=== PATIENT | female | born 1980 | race Caucasian/White ===

== ENCOUNTER 2017-06-01 07:54 | Emergency (ER) | payer SELFPAY ==
[~2017-06-01] VITALS: Ht 170.2 cm; Wt 55.8 kg
[2017-06-01 08:02] VITALS: BP 107/69
[2017-06-01] MEDS ORDERED: IBUP600T16 PO (08:22)
[2017-06-01] MEDS ORDERED: AMOX500C PO (08:22)
--- NOTE | 2017-06-01 08:22 | PHYS DOC ---
Past History Past Medical History: No Pertinent History Past Surgical History: Tubal ligation Alcohol Use: None Drug Use: None Adult General Chief Complaint Chief Complaint: SORE THROAT HPI HPI Patient is a 37-year-old female with a history significant for strep throat in the past presents to the ER today secondary to cough congestion sore throat. Patient reports low-grade fevers. Patient reports some nausea but no vomiting or diarrhea. Patient reports she is able tolerate by mouth solids and liquids well. Review of systems: Constitutional: Denies fever or chills Eyes: Denies change in visual acuity, redness, or eye pain HENT: Denies nasal congestion or sore throat Respiratory: Denies cough or shortness of breath All other systems were reviewed and found to be within normal limits, except as documented in this note. Physical exam: Constitutional: Well developed, well nourished, no acute distress, non-toxic appearance. HENT: Normocephalic, atraumatic, bilateral external ears normal, nose normal. Eyes: PERRLA, EOMI, conjunctiva normal, no discharge. Neck: Normal range of motion, no tenderness, supple, no stridor. Cardiovascular: Heart rate regular rhythm, Lungs & Thorax: Bilateral breath sounds clear to auscultation Abdomen: No abdominal distention. Skin: Warm, dry, no erythema, no rash. Back: Normal spinal curvature Extremities: No tenderness, no cyanosis, no clubbing, ROM intact, no edema. Neurologic: Alert and oriented X 3, normal motor function, normal sensory function, no focal deficits noted. Psychologic: Affect normal, judgement normal, mood normal. Patient's ER physical exam was most remarkable: Oropharynx is clear with no exudates. Mild bilateral erythema. No edema. Patient has no trismus. Patient has some mild submandibular lymphadenopathy. Patient's lungs were clear without any wheezing rales or rhonchi. Patient is nontoxic appearing. Assessment and plan: 1. 29-year-old female who presents here today secondary to sore throat cough congestion. Patient's symptoms are consistent with bronchitis. Patient is a smoker. Patient be discharged home on Zithromax and Motrin as needed. Allergies Allergies Allergies Coded Allergies Type Severity Reaction Last Updated Verified sulfamethoxazole Allergy Unknown 06/01/17 Yes trimethoprim Allergy Unknown 06/01/17 Yes Current Patient Data Vital Signs Vital Signs Date Time Temp Pulse Resp B/P (MAP) Pulse Ox O2 Delivery O2 Flow Rate FiO2 06/01/17 08:02 99.3 95 16 100 Room Air EKG EKG [] Radiology/Procedures Radiology/Procedures [] Course & Med Decision Making Course & Med Decision Making Pertinent Labs and Imaging studies reviewed. (See chart for details) [] Dragon Disclaimer Dragon Disclaimer This electronic medical record was generated, in whole or in part, using a voice recognition dictation system. Departure Departure: Impression: Primary Impression: Bronchitis Additional Impressions: Sore throat Sinusitis Disposition: HOME, SELF-CARE Condition: IMPROVED Patient Instructions: Acute Bronchitis, Sore Throat Scripts Ibuprofen (IBUPROFEN) 600 Mg Tablet 600 MG PO QID Y for PAIN, #20 Prov: KARLA LOPEZ MD 06/01/17 Amoxicillin (AMOXICILLIN) 500 Mg Capsule 1 CAP PO TID, #30 CAP Prov: KARLA LOPEZ MD 06/01/17 Problem Qualifiers KARLA LOPEZ MD Jun 01, 2017 08:22
[2017-06-01] MEDS ORDERED: IBUPROFEN 600 MG TABLET. PO ONE (08:45)
[2017-06-01] MEDS ORDERED: AMOXICILLIN 250 MG CAPSULE PO ONE (08:45)
== END 2017-06-01 08:35 | disposition home or self-care (01) ==
LOC: ER 07:54
DX: J40 Bronchitis, not specified as acute or chronic (principal); J32.9 Chronic sinusitis, unspecified; J02.9 Acute pharyngitis, unspecified; Z88.1 Allergy status to other antibiotic agents
CPT/HCPCS: 99283

== ENCOUNTER 2017-09-05 06:41 | Emergency (ER) | payer MEDICAID ==
[~2017-09-05] VITALS: Ht 157.5 cm; Wt 56.7 kg
[~2017-09-05 06:41] MED LIST: AMOX500C PO; IBUP600T16 PO
[2017-09-05 07:02] VITALS: BP 96/73
--- NOTE | 2017-09-05 07:26 | PHYS DOC ---
Past History Past Medical History: No Pertinent History Past Surgical History: Tubal ligation Alcohol Use: None Drug Use: None Adult General Chief Complaint Chief Complaint: SORE THROAT HPI HPI Patient is a 37-year-old female presenting to the emergency department for evaluation of a sore throat that has been going on for 4 days. She feels that it is scratchy and that sometimes her throat is more swollen. She has had cough and congestion but no fevers chills nausea vomiting or other systemic symptoms. She says that she has had strep throat for times this year and is concerned that she may have it again. She is able to eat and drink with no difficulty with says it hurts to swallow. She is in no obvious distress with normal vital signs. Review of Systems Review of Systems Constitutional: Denies fever or chills [] HENT: + nasal congestion, sore throat [] Allergies Allergies Allergies Coded Allergies Type Severity Reaction Last Updated Verified sulfamethoxazole Allergy Unknown 09/05/17 Yes trimethoprim Allergy Unknown 09/05/17 Yes Physical Exam Physical Exam Constitutional: Well developed, well nourished, no acute distress, non-toxic appearance. [] HENT: Normocephalic, atraumatic, bilateral external ears normal, oropharynx erythematous with no swelling, patent airway, no oral exudates, nose congested. Neck: Normal range of motion, no tenderness, supple, no stridor. [] Current Patient Data Vital Signs Vital Signs Date Time Temp Pulse Resp B/P (MAP) Pulse Ox O2 Delivery O2 Flow Rate FiO2 09/05/17 07:02 98.9 76 16 100 Room Air EKG EKG [] Radiology/Procedures Radiology/Procedures [] Course & Med Decision Making Course & Med Decision Making Patient with Cipro symptoms as a likely viral pharyngitis possibly with some allergic symptoms to it as well. She looks well with normal vital signs and patent airway. Patient is inquiring about getting a dose of steroids she read that that may help. I told her if it is allergic symptoms he could help some I will give her a dose of Decadron here and recommend [id number] ibuprofen and Nasonex Benadryl and will prescribe her viscous lidocaine. Patient told to follow primary care provider within 1 week to ensure improvement and come back to the ED sooner with worsening pain shortness of breath difficulty breathing or other general concerns. Patient aware and agreeable with plan and verbalized understanding of the above instructions. Dragon Disclaimer Dragon Disclaimer This electronic medical record was generated, in whole or in part, using a voice recognition dictation system. Departure Departure: Impression: Primary Impression: Pharyngitis Disposition: HOME, SELF-CARE Condition: STABLE Referrals: PCP,NO (PCP) Patient Instructions: Viral Pharyngitis Additional Instructions: TAKE 400MG OF IBUPROFEN EVERY 6 HOURS. YOU CAN ALSO TAKE TYLENOL FOR PAIN. TAKE 25MG OF BENADRYL FOR SCRATCHING FEELING. YOU CAN ALSO USE OTC NASONEX THIS WILL HELP DECREASE YOUR POST NASAL DRIP. USE OTC CEPACOL FOR PAIN WELL. DRINK PLENTY OF FLUIDS AND EAT A GOOD DIET. Problem Qualifiers Primary Impression: Pharyngitis Pharyngitis/tonsillitis etiology: unspecified etiology Qualified Codes: J02.9 - Acute pharyngitis, unspecified RICHARD VEGAS DO Sep 05, 2017 07:26
[2017-09-05] MEDS ORDERED: DEXAMETHASONE 4 MG TABLET PO ONE (07:30)
== END 2017-09-05 07:32 | disposition home or self-care (01) ==
LOC: ER 06:41
DX: J02.9 Acute pharyngitis, unspecified (principal); Z88.1 Allergy status to other antibiotic agents; Z88.2 Allergy status to sulfonamides
CPT/HCPCS: 87070; 87880; 99283; J8540

== ENCOUNTER 2018-03-08 22:00 | Emergency (ER) | payer MEDICAID ==
[~2018-03-08] VITALS: Ht 170.2 cm; Wt 55.6 kg
--- NOTE | 2018-03-08 22:32 | PHYS DOC ---
Past History Past Medical History: No Pertinent History Past Surgical History: Tubal ligation Smoking: Non-smoker Alcohol Use: None Drug Use: None Adult General Chief Complaint Chief Complaint: PAIN ON URINATION HPI HPI 37-year-old female presents with 2-3 day history of dysuria with increased urinary frequency. Denies fever. Denies nausea or vomiting. Denies . Patient reports history of prior tubal ligation. Reports last menstrual just started. Review of Systems Review of Systems Constitutional: Denies fever or chills; reports malaise Respiratory: Denies cough or shortness of breath [] Cardiovascular: Denies chest pain or palpitations GI: Reports suprapubic abdominal pain; denies nausea, vomiting, or diarrhea [] : Reports dysuria and increased urinary frequency; denies hematuria Integument: Denies rash or skin lesions [] Neurologic: Denies headache, focal weakness or sensory changes [] Complete systems were reviewed and found to be within normal limits, except as documented in this note. Allergies Allergies Allergies Coded Allergies Type Severity Reaction Last Updated Verified sulfamethoxazole Allergy Unknown 03/08/18 Yes trimethoprim Allergy Unknown 03/08/18 Yes Physical Exam Physical Exam Constitutional: Well developed, well nourished, no acute distress, non-toxic appearance. Uncomfortable in appearance HENT: Normocephalic, atraumatic, oropharynx moist Eyes: conjunctiva normal, no discharge. [] Neck: Normal range of motion, no tenderness, supple Cardiovascular: Heart rate regular rhythm, no murmur [] Lungs & Thorax: Bilateral breath sounds clear to auscultation [] Abdomen: soft, mild suprapubic tenderness Skin: Warm, dry, no erythema, no rash. [] Back: No tenderness, no CVA tenderness. [] Neurologic: Alert and oriented X 3, speech normal Psychologic: Affect normal, judgement normal, mood normal. [] EKG EKG [] Radiology/Procedures Radiology/Procedures [] Course & Med Decision Making Course & Med Decision Making Pertinent Labs and Imaging studies reviewed. (See chart for details) Patient presents with history of present illness and physical exam concerning for possible acute UTI. Afebrile. Urine negative. UA consistent for infection. Empiric antibiotic initiated. Symptomatic treatment provided with Pyridium and ibuprofen. Patient stable for discharge with outpatient follow-up with PCP. Discussed findings and plan with patient, who acknowledges understanding and agreement. Dragon Disclaimer Becky Disclaimer This electronic medical record was generated, in whole or in part, using a voice recognition dictation system. Departure Departure: Impression: Primary Impression: UTI (urinary tract infection) Disposition: 01 HOME, SELF-CARE Condition: STABLE Referrals: PCP,NO (PCP) Patient Instructions: Urinary Tract Infection, [id number] Scripts Cephalexin (KEFLEX) 500 Mg Capsule 1 CAP PO TID for 7 Days, #21 CAP Prov: ASAEL PEREZ DO 03/08/18 Phenazopyridine Hcl (PYRIDIUM) 200 Mg Tablet 200 MG PO Q8HRS for urinary tract infection for 2 Days, #6 Prov: ASAEL PEREZ DO 03/08/18 Problem Qualifiers Primary Impression: UTI (urinary tract infection) Urinary tract infection type: acute cystitis Hematuria presence: with hematuria Qualified Codes: N30.01 - Acute cystitis with hematuria ASAEL PEREZ DO Mar 08, 2018 22:32
[2018-03-08 22:55] LABS: CLARITY,URINE CLOUDY; COLOR,URINE YELLOW
[2018-03-08 22:56] LABS: BACTERIA,URINE MANY /HPF (0-FEW); BILIRUBIN,URINE NEG (NEG); GLUCOSE,URINE NEG (NEG); NITRITE,URINE POS (NEG); SQUAMOUS EPITHELIAL CELL,UR MOD /LPF; UROBILINOGEN,URINE 0.2 mg/dL (0.2 mg/dL); WBC,URINE TNTC /HPF (0-4)
[2018-03-08 22:59] LABS: U PREG PATIENT NEGATIVE (NEG)
[2018-03-08] MEDS ORDERED: PHENAZOPYRIDINE 200 MG TABLET. PO ONE (23:00)
[2018-03-08] MEDS ORDERED: IBUPROFEN 400 MG TABLET. PO ONE (23:00)
[2018-03-08] MEDS ORDERED: CEPH-264 PO (23:06)
[2018-03-08] MEDS ORDERED: PHEN-318 PO (23:06)
[2018-03-08] MEDS ORDERED: CEPHALEXIN 250 MG CAPSULE PO ONE (23:30)
[2018-03-08 23:38] VITALS: BP 99/71
== END 2018-03-08 23:39 | disposition home or self-care (01) ==
LOC: ER 22:00
DX: N30.01 Acute cystitis with hematuria (principal); Z98.51 Tubal ligation status; Z88.1 Allergy status to other antibiotic agents
CPT/HCPCS: 81001; 81025; 87086; 99284